=== PATIENT | female | born 2000 | race Caucasian/White ===

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

== ENCOUNTER 2019-03-21 15:15 | Emergency (ER) | payer OTHER ==
--- NOTE | 2019-03-21 15:39 | PDOC ---
Rapid Medical Evaluation Time Seen by Provider: 03/21/19 15:38 Medical Evaluation: Allergies Allergy/AdvReac Type Severity Reaction Status Date / Time red dye Allergy Severe Swelling Verified 03/21/19 15:38 03/21/19 15:38 I have performed a brief in-person evaluation of this patient. The patient presents with a chief complaint of:Lower abd pain w/ nausea. Similar to when she was dx w/ constipation per pt but states she is not constipated now. No pmhx, uses nexplanon control Pertinent physical exam findings:vss, ericka uncomfortable I have ordered the following:labs/urine The patient will proceed to the ED for further evaluation. Discharge Disposition - Diagnosis Abdominal pain Qualifiers: Abdominal location: unspecified location Qualified Code(s): R10.9 - Unspecified abdominal pain - Referrals - Patient Instructions - Post Discharge Activity
[2019-03-21 15:41] VITALS: BP 121/77; PULSE 78; TEMP 98.5; BMI 20.7
[2019-03-21] MEDS ORDERED: SODIUM CHLORIDE 1,000 ML IV STA (16:30)
[2019-03-21] MEDS ORDERED: ACETAMINOPHEN 1000 MG/100 ML VIAL (NON FORMULARY) IVPB ONE (16:30)
[2019-03-21] MEDS ORDERED: FAMOTIDINE 20 MG/50 ML IVPB 20 MG/50 ML MG IVPB ONE (16:32)
[2019-03-21] MEDS ORDERED: MAG HYDROX/AL HYDROX/SIMETH 30 ML UNIT-DOSE CUP PO ONE (16:32)
--- NOTE | 2019-03-21 16:33 | PDOC ---
History of Present Illness - General Chief Complaint: Pain, Acute Stated Complaint: ABD PAIN Time Seen by Provider: 03/21/19 15:38 History Source: Patient Exam Limitations: No Limitations - History of Present Illness Initial Comments: 03/21/19 16:26 18 yo F with a hx of depression and anxiety (recently restarted prozac 4 weeks ago) and daily marijuana user presents to the emergency department with bilateral lower abdominal pain that radiates to the epigastric region since yesterday. Per the patient, she has had pain similar in quality in the past, however this is higher in severity. She states she has nausea without vomiting, but has tried to self induce to no avail. Per the patient, she has had dysuria for the last 2 days without increased frequency or hematuria. The patient endorses 03/21/19 17:05 Past History - Past Medical History Allergies/Adverse Reactions: Allergies Allergy/AdvReac Type Severity Reaction Status Date / Time red dye Allergy Severe Swelling Verified 03/21/19 15:38 Home Medications: Ambulatory Orders Cephalexin Monohydrate [Keflex -] 500 mg PO TID #15 capsule 10/16/18 Ondansetron [Ondansetron Odt] 8 mg PO DAILY 10/16/18 COPD: No Kidney Stones: No - Immunization History Immunization Up to Date: Yes - Suicide/Smoking/Psychosocial Hx Smoking History: Never smoked Hx Alcohol Use: No Drug/Substance Use Hx: Yes (MIREYA) *Physical Exam - Vital Signs Last Vital Signs Temp Pulse Resp BP Pulse Ox 98.5 F 78 18 121/77 99 03/21/19 15:38 03/21/19 15:38 03/21/19 15:38 03/21/19 15:38 03/21/19 15:38 ED Treatment Course - LABORATORY CBC & Chemistry Diagram: 03/21/19 16:55 03/21/19 16:55 *DC/Admit/Observation/Transfer Diagnosis at time of Disposition: Abdominal pain Qualifiers: Abdominal location: unspecified location Qualified Code(s): R10.9 - Unspecified abdominal pain - Referrals - Patient Instructions - Post Discharge Activity
[2019-03-21] MEDS ORDERED: MAG HYDROX/AL HYDROX/SIMETH 30 ML UNIT-DOSE CUP ONE (16:35)
[2019-03-21] MEDS ORDERED: ACETAMINOPHEN INJECTION 100 ML IVPB ONE (16:35)
[2019-03-21 17:10] LABS: BASO % 0.5 % (0-2.0); EOS % 1.5 % (0-4.5); HEMATOCRIT 43.2 % (32.4-45.2); HEMOGLOBIN 14.5 GM/dL (10.7-15.3); LYMPH % 31.6 % (8-40); MCH 27.6 pg (25.7-33.7); MCHC 33.5 g/dl (32.0-36.0); MEAN CELL VOLUME 82.4 fl (80-96); MEAN PLT VOLUME 9.4 fl (7.5-11.1); MONO % 12.7 % (3.8-10.2); NEUT % 53.7 % (42.8-82.8); PLATELET COUNT 215 K/MM3 (134-434); RBC 5.24 M/mm3 (3.60-5.2); WHITE BLOOD COUNT 6.2 K/mm3 (4.0-10.0)
[2019-03-21 17:20] LABS: HCG,QUALITATIVE URINE Negative
--- NOTE | 2019-03-21 17:22 | PDOC ---
Documentation entered by Trung Hill SCRIBE, acting as scribe for Buck Mathew MD. Buck Mathew MD: This documentation has been prepared by the Liz mares Matthew, SCRIBE, under my direction and personally reviewed by me in its entirety. I confirm that the documentation accurately reflects all work, treatment, procedures, and medical decision making performed by me. Attending Attestation - Resident Resident Name: HannahJarad - ED Attending Attestation I have performed the following: I have examined & evaluated the patient, The case was reviewed & discussed with the resident, I agree w/resident's findings & plan, Exceptions are as noted - HPI HPI: 03/21/19 17:22 18-year-old female patient with history of constipation presents with intermittent abdominal discomfort. Patient reports that she typically has hard bowel movements and is taking chronic MiraLAX. Patient reported an last several days of having abdominal discomfort radiating from the lower abdomen to the upper abdomen. No fevers or chills. Reports some mild decrease in appetite. Patient thinks that she may be constipated. She does report some mild dysuria starting today. - Physicial Exam PE: 03/21/19 17:28 GENERAL: Awake, alert, and fully oriented, in no acute distress HEAD: No signs of trauma EYES: EOMI, sclera anicteric, conjunctiva clear ENT: Auricles normal inspection, hearing grossly normal, nares patentMoist mucosa NECK: Normal ROM, supple LUNGS: Breath sounds equal, clear to auscultation bilaterally. No wheezes, and no crackles HEART: Regular rate and rhythm, normal S1 and S2, no murmurs, rubs or gallops ABDOMEN: Soft, nontender, No guarding, no rebound. No masses EXTREMITIES: Normal range of motion, no edema. No clubbing or cyanosis. No cords, erythema, or tenderness NEUROLOGICAL: Cranial nerves II through XII grossly intact. Normal speech SKIN: Warm, Dry, normal turgor, no rashes or lesions noted. - Medical Decision Making 03/21/19 17:29 Vital Signs Temp Pulse Resp BP Pulse Ox 98.5 F 78 18 121/77 99 03/21/19 15:38 03/21/19 15:38 03/21/19 15:38 03/21/19 15:38 03/21/19 15:38 18-year-old female presents with abdominal discomfort. I suspect patient likely has constipation. However, we'll rule out urinary tract infection. We'll obtain labs including lipase and LFTs to rule out other acute abdominal pathology. If the x-ray confirms constipation, I feel comfortable treating this as constipation. 03/21/19 18:17 CBC, BMP 03/21/19 16:55 03/21/19 16:55 CMP Sodium 136 mmol/L (136-145) 03/21/19 16:55 Potassium 4.4 mmol/L (3.5-5.1) 03/21/19 16:55 Chloride 105 mmol/L (98-107) 03/21/19 16:55 Carbon Dioxide 27 mmol/L (21-32) 03/21/19 16:55 Anion Gap 4 MMOL/L (8-16) L 03/21/19 16:55 BUN 10 mg/dL (7-18) 03/21/19 16:55 Creatinine 0.7 mg/dL (0.55-1.3) 03/21/19 16:55 Est GFR (CKD-EPI)AfAm 145.58 03/21/19 16:55 Est GFR (CKD-EPI)NonAf 125.60 03/21/19 16:55 Random Glucose 72 mg/dL (74-106) L 03/21/19 16:55 Calcium 9.5 mg/dL (8.5-10.1) 03/21/19 16:55 Total Bilirubin 0.6 mg/dL (0.2-1) 03/21/19 16:55 AST 14 U/L (15-37) L 03/21/19 16:55 ALT 23 U/L (13-61) 03/21/19 16:55 Alkaline Phosphatase 73 U/L (45-117) 03/21/19 16:55 Total Protein 7.8 g/dl (6.4-8.2) 03/21/19 16:55 Albumin 4.3 g/dl (3.4-5.0) 03/21/19 16:55 Lipase 237 U/L (73-393) 03/21/19 16:55 Serum , Qual Negative 03/21/19 16:51 UA Pending. Abdominal x-ray reviewed by me, pending official radiology read demonstrates significant amount of gas and stool but no evidence of bowel obstruction. We will perform a Fleet enema as well as a magnesium citrate and perform a fecal disimpaction. I suspect patient's symptoms are secondary to constipation. We'll encourage high-fiber diet and plenty of oral fluids. If urinalysis is negative, the patient go home and continue her MiraLAX to follow-up with her primary care physician. 03/21/19 19:06 The patient reports significant relief with the fleet enema and miralax. NIRANJAN performed by Dr. Paulson. He reports no obvious stool in vault. 03/21/19 19:17 UA is still pending, but pt would like to go home. I will have the patient call back for the UA results. *DC/Admit/Observation/Transfer Diagnosis at time of Disposition: Abdominal pain Qualifiers: Abdominal location: unspecified location Qualified Code(s): R10.9 - Unspecified abdominal pain Constipation Qualifiers: Constipation type: unspecified constipation type Qualified Code(s): K59.00 - Constipation, unspecified - Discharge Dispostion Disposition: HOME Condition at time of disposition: Improved Decision to Admit order: No - Prescriptions Prescriptions: Cephalexin Monohydrate [Keflex -] 500 mg PO BID #14 capsule Magnesium Citrate [Citroma -] 150 ml PO BID PRN #1 bottle PRN Reason: Constipation Sodium Phosphate,Heard-Dibasic [Fleet Enema] 133 ml RC ONCE PRN #1 enema PRN Reason: Constipation - Referrals Referrals: ON STAFF,NOT [Primary Care Provider] - Levar Suárez DO [Staff Physician] - - Patient Instructions Printed Discharge Instructions: DI for Constipation Additional Instructions: Please drink plenty of fluids and rest. Try to use a high fiber diet. If you ever have severe constipation again, please use the fleet enema and/or magnesium citrate as prescribed and make an appointment with a news commentator. Please follow up with a doctor. Your urine studies are pending. I have sent a prescription of cephalexin ( antibiotic) 500 mg every 12 hours for 7 days. Please call back at [phone] or [phone] for the urine results later today or tomorrow. If your urine has an infection, please start taking the antibiotic. Otherwise, do not take the antibiotic. - Post Discharge Activity
[2019-03-21 17:32] LABS: ALBUMIN 4.3 g/dl (3.4-5.0); BILIRUBIN,TOTAL 0.6 mg/dL (0.2-1); CALCIUM 9.5 mg/dL (8.5-10.1); CREATININE 0.7 mg/dL (0.55-1.3); POTASSIUM 4.4 mmol/L (3.5-5.1); TOT PROT 7.8 g/dl (6.4-8.2)
[2019-03-21] MEDS ORDERED: ONDANSETRON 4 MG/2 ML VIAL IVPUSH ONE (17:57)
[2019-03-21] MEDS ORDERED: ONDANSETRON 4 MG/2 ML VIAL ONE (17:59)
[2019-03-21] MEDS ORDERED: MAGNESIUM CITRATE 300 ML BOTTLE PO ONE (18:04)
[2019-03-21] MEDS ORDERED: SODIUM PHOSPHATE/NA BIPHOS 133 ML ENEMA PR ONE (18:04)
[2019-03-21] MEDS ORDERED: MAGNESIUM CITRATE 300 ML BOTTLE ONE (18:06)
[2019-03-21 19:19] LABS: URINE APPEARANCE CLEAR; URINE BILIRUBIN NEGATIVE (NEGATIVE); URINE COLOR YELLOW; URINE GLUCOSE (UA) NEGATIVE (NEGATIVE); URINE KETONE TRACE (NEGATIVE); URINE LEUK ESTERASE NEGATIVE (NEGATIVE); URINE NITRITE NEGATIVE (NEGATIVE); URINE PROTEIN NEGATIVE (NEGATIVE); URINE UROBILINOGEN 0.2 mg/dL (0.2-1.0)
== END 2019-03-21 19:58 | disposition home or self-care (01) ==
LOC: JER 15:15
PROC: 3E033NZ Introduction of Analgesics, Hypnotics, Sedatives into Peripheral Vein, Percutaneous Approach (ICD-10-PCS; principal; 2019-03-21)
PROC: 3E033GC Introduction of Other Therapeutic Substance into Peripheral Vein, Percutaneous Approach (ICD-10-PCS; 2019-03-21)
PROC: 3E0337Z Introduction of Electrolytic and Water Balance Substance into Peripheral Vein, Percutaneous Approach (ICD-10-PCS; 2019-03-21)
DX: R10.9 Unspecified abdominal pain (principal); F41.8 Other specified anxiety disorders; F12.90 Cannabis use, unspecified, uncomplicated
CPT/HCPCS: 36415; 74019-TC-FY; 80053; 81003; 83690; 84703; 85025; 87086; 99282-25; J0131; J7030

== ENCOUNTER 2024-09-15 17:35 | Inpatient (IN) | payer OTHER ==
[2024-09-15 19:00] VITALS: BMI 30.2
[2024-09-15 20:23] LABS: BASO % 0.2 % (0-2.0); EOS % 0.9 % (0-4.5); HEMATOCRIT 33.5 % (32.4-45.2); HEMOGLOBIN 10.8 GM/dL (10.7-15.3); LYMPH % 17.7 % (8-40); MCH 23.9 pg (25.7-33.7); MCHC 32.3 g/dl (32.0-36.0); MEAN PLT VOLUME 9.5 fl (7.5-11.1); MONO % 7.5 % (3.8-10.2); NEUT % 73.7 % (42.8-82.8); PLATELET COUNT 230 10^3/uL (134-434); RBC 4.53 M/mm3 (3.60-5.2); RDW 15.8 % (11.6-15.6); WHITE BLOOD COUNT 11.1 K/mm3 (4.0-10.0)
[2024-09-15 20:32] LABS: POTASSIUM 4.1 mmol/L (3.5-5.1)
[2024-09-15 20:34] LABS: BLOOD UREA NITROGEN 5.6 mg/dL (7-18)
[2024-09-15 20:35] LABS: PROTHROMBIN TIME (PATIENT) 11.3 SEC (9.7-13.0)
[2024-09-15 20:37] LABS: CREATININE 0.8 mg/dL (0.55-1.3)
[2024-09-15 20:38] LABS: ACTIVATED PTT 24.9 SECONDS (25.2-36.5)
[2024-09-15] MEDS: DINOPROSTONE 10 MG VAGINAL SUPPOSITORY VG ONE (21:55)
[2024-09-15 21:56] LABS: ALBUMIN 2.6 g/dl (3.4-5.0)
[2024-09-15 21:59] LABS: BILIRUBIN,DIRECT 0.2 mg/dL (0.0-0.2)
[2024-09-15 22:01] LABS: BILIRUBIN,TOTAL 0.4 mg/dL (0.2-1); TOT PROT 6.4 g/dl (6.4-8.2)
[2024-09-15] MEDS: LACTATED RINGERS SOLUTION 1,000 ML IV SCH (22:30)
[2024-09-16] MEDS ORDERED: ONDANSETRON 4 MG/2 ML VIAL ONE ×3 (04:09→15:50)
[2024-09-16] MEDS: ONDANSETRON 4 MG/2 ML VIAL IVPB ONE (04:20)
[2024-09-16] MEDS ORDERED: OXYTOCIN 30 UNITS in 0.9% NS 30 UNIT/500 ML INFUS.BAG IVPB ONE ×2 (07:16→15:48)
[2024-09-16] MEDS: OXYTOCIN 30 UNITS in 0.9% NS 30 UNIT/500 ML INFUS.BAG IVPB SCH (07:30)
[2024-09-16] MEDS: ONDANSETRON 4 MG/2 ML VIAL IVPUSH ONE (09:30)
[2024-09-16] MEDS: CITRIC ACID/SODIUM CITRATE 30 ML UNIT-DOSE CUP PO ONE (15:30)
[2024-09-16] MEDS ORDERED: morphine SULFATE (PF) 1 MG/2 ML SYRINGE ONE (15:49)
[2024-09-16] MEDS ORDERED: METOCLOPRAMIDE HCL INJECTION 10 MG/2 ML VIAL ONE (15:50)
[2024-09-16] MEDS ORDERED: FENTANYL CITRATE/PF 50 MCG/ML VIAL ONE (15:50)
[2024-09-16] MEDS ORDERED: DEXAMETHASONE SOD PHOSPHATE 4 MG/1 ML VIAL ONE (15:50)
[2024-09-16] MEDS ORDERED: PHENYLEPHRINE HCL 10 MG/1 ML SINGLE DOSE VIAL ONE (15:50)
[2024-09-16] MEDS ORDERED: AMPICILLIN NA/SULBACTAM NA 1.5 GM VIAL ONE ×2 (16:10→16:15)
[2024-09-16] MEDS ORDERED: KETOROLAC TROMETHAMINE 30 MG/1 ML VIAL ONE (16:35)
[2024-09-16 16:48] LABS: CORD HCO3 22.3 mmHg (20-29); CORD pH 7.354 (7.14-7.44)
[2024-09-16 16:48] LABS: CORD HCO3 25.5 mmHg (20-29); CORD PCO2 55.8 mmHg (30-78); CORD pH 7.277 (7.14-7.44)
[2024-09-16] MEDS ORDERED: ACETAMINOPHEN 325 MG TABLET (FP) PO PRN (16:49)
[2024-09-16] MEDS ORDERED: METHYLERGONOVINE MALEATE 0.2 MG/1 ML AMP IM PRN (16:49)
[2024-09-16] MEDS: OXYTOCIN 20 UNITS in 0.9% NS 20 UNIT/1,000 ML INFUS.BAG IV SCH (17:10)
[2024-09-16] MEDS ORDERED: AMPICILLIN NA/SULBACTAM NA 1.5 GM in SODIUM CHLORIDE 100 ML IVPB SCH (18:00)
[2024-09-16] MEDS: ONDANSETRON 4 MG/2 ML VIAL IVPUSH PRN (21:42)
[2024-09-16] MEDS: IBUPROFEN 800 MG/8 ML IJ IVPB PRN (23:39)
[2024-09-17] MEDS ORDERED: AMPICILLIN NA/SULBACTAM NA 1.5 GM in SODIUM CHLORIDE 100 ML IVPB SCH
[2024-09-17] MEDS: AMPICILLIN NA/SULBACTAM NA 1.5 GM in SODIUM CHLORIDE 100 ML IVPB SCH (00:40)
[2024-09-17] MEDS ORDERED: oxyCODONE HCL 5 MG TABLET PO PRN (04:49)
[2024-09-17 06:25] VITALS: RESP 18
[2024-09-17 08:41] LABS: BASO % 0.1 % (0-2.0); EOS % 0.2 % (0-4.5); HEMATOCRIT 30.3 % (32.4-45.2); HEMOGLOBIN 9.8 GM/dL (10.7-15.3); LYMPH % 9.3 % (8-40); MCH 24.3 pg (25.7-33.7); MCHC 32.4 g/dl (32.0-36.0); MEAN PLT VOLUME 9.9 fl (7.5-11.1); MONO % 9.1 % (3.8-10.2); NEUT % 81.3 % (42.8-82.8); PLATELET COUNT 192 10^3/uL (134-434); RBC 4.04 M/mm3 (3.60-5.2); RDW 15.5 % (11.6-15.6); WHITE BLOOD COUNT 14.6 K/mm3 (4.0-10.0)
[2024-09-17] MEDS: ENOXAPARIN NA (PORCINE) 40 MG/0.4 ML DISP.SYRIN SQ SCH (09:32)
[2024-09-17] MEDS: FLU VACCINE (FLULAVAL) PF 45 MCG/0.5 ML SYRINGE 2024-2025 IM ONE (11:27)
[2024-09-17] MEDS: oxyCODONE HCL 5 MG TABLET PO PRN (11:30)
[2024-09-17] MEDS: SIMETHICONE 80 MG TAB.CHEW (FP) PO PRN (21:42)
[2024-09-18] MEDS: morphine SULFATE/PF 1 MG/2 ML (2cc Syringe - QUVA) IT ONE (07:35)
[2024-09-18] MEDS: ONDANSETRON 4 MG/2 ML VIAL IVPB ONE (07:38)
[2024-09-18] MEDS: BISACODYL 5 MG TABLET.DR (FP) PO ONE (13:13)
[2024-09-18] MEDS: BISACODYL 10 MG SUPP.RECT RC PRN (15:21)
[2024-09-19] MEDS: IBUPROFEN 600 MG TABLET (FP) PO PRN (00:40)
[2024-09-19 07:25] LABS: BASO % 0.3 % (0-2.0); EOS % 2.6 % (0-4.5); HEMATOCRIT 28.6 % (32.4-45.2); HEMOGLOBIN 9.2 GM/dL (10.7-15.3); MCH 24.2 pg (25.7-33.7); MCHC 32.2 g/dl (32.0-36.0); MEAN CELL VOLUME 75.1 fl (80-96); MEAN PLT VOLUME 9.3 fl (7.5-11.1); MONO % 7.9 % (3.8-10.2); NEUT % 67.2 % (42.8-82.8); PLATELET COUNT 250 10^3/uL (134-434); RBC 3.81 M/mm3 (3.60-5.2); RDW 16.3 % (11.6-15.6); WHITE BLOOD COUNT 10.4 K/mm3 (4.0-10.0)
[2024-09-19 09:27] VITALS: BP 110/71; PULSE 72; TEMP 98.1
== END 2024-09-19 13:40 | disposition home or self-care (01) | DRG 540 ==
LOC: JLDR 17:35 → J3W 09-16 20:02
PROVIDERS: ADMIT Obstetrics & Gynecology; ATTEND Obstetrics & Gynecology
PROC: 10D00Z1 Extraction of Products of Conception, Low, Open Approach (ICD-10-PCS; principal; 2024-09-16)
DX: O26.643 Intrahepatic cholestasis of pregnancy, third trimester (principal); K83.1 Obstruction of bile duct; O62.0 Primary inadequate contractions; Z3A.37 37 weeks gestation of pregnancy; Z37.0 Single live birth
CPT/HCPCS: 36415; 36600; 80048; 80076; 82803; 85025; 85610; 85730; 86780; 86850; 86900; 86901; 88307-TC; 90656; G0008